=== PATIENT | female | born 1950 | race Caucasian/White ===

== ENCOUNTER 2017-07-23 13:43 | Emergency (ER) | payer BC ==
[2017-07-23 16:10] VITALS: BP 137/77
--- NOTE | 2017-07-23 16:24 | UC ---
FLU HPI - HPI Summary HPI Summary: 66 y/o female presents to the urgent care c/o body aches, fatigue, with mild nasal congestion since yesterday. Nasal discharge is clear. She has not taking anything to alleviate symptoms. She likes to take homeopathic approach. Pt denies fever, sOB, cough, chest pain, abdominal pain N/V/D. - History of Current Complaint Chief Complaint: UCGeneralIllness Stated Complaint: FLU SYMPTOMS Time Seen by Provider: 07/23/17 16:20 Hx Obtained From: Patient ?: No Onset/Duration: Gradual Onset, Lasting Days - 1 day, Still Present Severity Currently: Mild Severity Initially: Mild Pain Intensity: 2 Pain Scale Used: 0-10 Numeric Associated Signs & Symptoms: Positive: Myalgia, Nasal Congestion - mild, Headache. Negative: Fever, Cough, Sore Throat - Risk Factors Influenza Risk Factors: Age 65 y/o or Older - Allergy/Home Medications Allergies/Adverse Reactions: Allergies Allergy/AdvReac Type Severity Reaction Status Date / Time No Known Allergies Allergy Verified 07/23/17 16:10 Home Medications: Home Medications NK [No Home Medications Reported] 07/23/17 [History Confirmed 07/23/17] PMH/Surg Hx/FS Hx/Imm Hx Previously Healthy: Yes - Pt denies PMHX - Surgical History Surgical History: None - Family History Known Family History: Positive: Cardiac Disease, Diabetes - Social History Occupation: Retired Lives: With Family Alcohol Use: Occasionally Substance Use Type: None Smoking Status (MU): Never Smoked Tobacco Review of Systems Constitutional: Chills, Fatigue, Other - body aches Skin: Negative Eyes: Negative ENT: Nasal Discharge Respiratory: Negative Cardiovascular: Negative Gastrointestinal: Negative Genitourinary: Negative Motor: Negative Neurovascular: Negative Musculoskeletal: Negative Neurological: Headache Psychological: Negative Is Patient Immunocompromised?: No All Other Systems Reviewed And Are Negative: Yes Physical Exam Triage Information Reviewed: Yes Vital Signs: Initial Vital Signs Temp 98.7 F 07/23/17 16:04 Pulse 69 07/23/17 16:04 Resp 16 07/23/17 16:04 BP 137/77 07/23/17 16:04 Pulse Ox 100 07/23/17 16:04 - Additional Comments VITAL SIGNS: Reviewed. GENERAL: Patient is a well developed and nourished female who is sitting comfortable in the examining table. Patient is not in any acute respiratory distress. HEAD AND FACE: No signs of trauma. No ecchymosis, hematomas or skull depressions. No sinus tenderness. edematous erythematous nasal mucosa with yellowish discharge, EYES: PERRLA, EOMI x 2, No injected conjunctiva, clear watery eyes, no nystagmus. No photophobia. EARS: Hearing grossly intact. Ear canals and tympanic membranes are within normal limits. MOUTH: Positive pharynx with erythema, no exudates,no palatal petechiae. no B/L tonsillar enlargement Uvula in midline. NECK: Supple, trachea is midline, Positive anterior cervical lymphadenopathy, no JVD, no carotid bruit, no c-spine tenderness, neck with full ROM. No meningeal signs, no Kernig's or brudzinskis signs. CHEST: Symmetric, no tenderness at palpation LUNGS: Clear to auscultation bilaterally. No wheezing or crackles. CVS: Regular rate and rhythm, S1 and S2 present, no murmurs or gallops appreciated. ABDOMEN: Soft, non-tender. No signs of distention. No rebound no guarding, and no masses palpated. Bowel sounds are normal. EXTREMITIES: FROM in all major joints, no edema, no cyanosis or clubbing. NEURO: Alert and oriented x 3. No acute neurological deficits. Speech is normal and follows commands. SKIN: Dry and warm Flu Course/Dx - Course Course Of Treatment: 66 y/o female presents to the urgent care c/o body aches, fatigue, with mild nasal congestion since yesterday. Nasal discharge is clear. She has not taking anything to alleviate symptoms. She likes to take homeopathic approach. Pt denies fever, sOB, cough, chest pain, abdominal pain N/ V/D. Hx obtained. Pt with URI on examination. Influenza A&B ordered: result: negative. Advised to take tylenol PO for DUARTE and encourage hand washing avoid spreading. Pt advised to rest, increase fluid intake, eat well and avoid strenuous exercise. If symptoms do not improve or worsen advised to return to the urgent care or f/u with her PCP for further evaluation and treatment. Pt understood and agreed with plan of care. - Differential Dx/Diagnosis Differential Diagnosis/HQI/PQRI: Bronchitis, Influenza, Upper Respiratory Infection, Other - pharyngitis Provider Diagnoses: 1- Viral syndrome Discharge - Discharge Plan Condition: Stable Disposition: HOME Patient Education Materials: Viral Syndrome (ED) Referrals: Seema Stevens MD [Primary Care Provider] - 2 Days Additional Instructions: 1-Please take Tylenol PO q6-8hrs prn as instructed after meals to alleviate Headache. Increase fluid intake, eat well, rest and avoid strenuous exercise. Use saline drops to clear sinuses 3-If symptoms do not improve or worsen please return to the urgent care or f/u with your PCP in 2 days for further evaluation and treatment.
== END 2017-07-23 16:56 | disposition home or self-care (01) ==
LOC: UCCORT 13:43
DX: B34.9 Viral infection, unspecified (principal)
CPT/HCPCS: 87502; 99211; G0463

== ENCOUNTER 2017-08-15 12:55 | Emergency (ER) | payer BC ==
--- OUTSIDE RECORDS SUMMARY | 2017-08-15 16:25 | XMS REPORT ---
:1950 External Reference #:[id number] Author Organization [facility] Address [address] [place] [address] Phone [phone] Care Team Providers Name Role Phone Seema Stevens MD Primary Care Physician Unavailable Payers Type Date Identification Numbers Payment Provider Subscriber Health Maintenance Policy Number: [id number] [place] Plan Claims Davina Singer [facility] (HMO) PayID: [id number] [address] [place] [address] Problems Description No Information Family History Date Family Member(s) Problem(s) Comments General Diabetes Type 2 Father due to Heart Disease () Father due to Hypertension () Father due to Ulcer () Mother due to Stroke () Mother due to Breast Cancer () Social History Type Date Description Comments Marital Status Legal Status: Cigarette Use Never Smoked Cigarettes ETOH Use Social Smoking Patient has never smoked Recreational Drug Use Never Used Drugs Seat Belt/Car Seat Always uses seat belt Currently Active Patient is currently sexually active Allergies, Adverse Reactions, Alerts Date Description Reaction Status Severity Comments 01/03/2017 NKDA active Medications Medication Date Status Form Strength Qnty SIG Indications Ordering Provider Takes Only 01/03/2017 Active Jennifer Patel M.D. Immunizations CPT Code Status Date Vaccine Lot # [id number] Given 07/19/2015 Pneumococcal Conjugate Vaccine 13 Valent For Intramuscular Use 42215 Given 07/09/2015 Zostavax Vital Signs Date Vital Result Comment 07/31/2017 BP Systolic 124 mmHg BP Diastolic 76 mmHg Height 65 inches 5'5" Weight 158.00 lb BMI (Body Mass Index) 26.3 kg/m2 06/04/2017 BP Systolic 108 mmHg BP Diastolic 70 mmHg Height 65 inches 5'5" Weight 161.00 lb BMI (Body Mass Index) 26.8 kg/m2 01/29/2017 BP Systolic 108 mmHg BP Diastolic 66 mmHg Height 65 inches 5'5" Weight 158.00 lb BMI (Body Mass Index) 26.3 kg/m2 01/03/2017 BP Systolic 138 mmHg BP Diastolic 70 mmHg BP Systolic Recheck 120 mmHg BP Diastolic Recheck 70 mmHg Height 65 inches 5'5" Weight 155.00 lb BMI (Body Mass Index) 25.8 kg/m2 Results Test Date Test Result H/L Range Note CBC Auto Diff 07/24/2017 White Blood Count 5.6 10^3/uL 3.5-10.8 Red Blood Count 5.12 10^6/uL 4.0-5.4 Hemoglobin 13.4 g/dL 12.0-16.0 Hematocrit 41 % 35-47 Mean Corpuscular Volume 80 fL 80-97 Mean Corpuscular Hemoglobin 26 pg Low 27-31 Mean Corpuscular HGB Conc 33 g/dL 31-36 Red Cell Distribution Width 14 % 10.5-15 Platelet Count 155 10^3/uL 150-450 Mean Platelet Volume 10 um3 7.4-10.4 Abs Neutrophils 3.4 10^3/uL 1.5-7.7 Abs Lymphocytes 1.7 10^3/uL 1.0-4.8 Abs Monocytes 0.4 10^3/uL 0-0.8 Abs Eosinophils 0.1 10^3/uL 0-0.6 Abs Basophils 0 10^3/uL 0-0.2 Abs Nucleated RBC 0 10^3/uL Granulocyte % 60.9 % 38-83 Lymphocyte % 29.4 % 25-47 Monocyte % 6.7 % 1-9 Eosinophil % 2.6 % 0-6 Basophil % 0.4 % 0-2 Nucleated Red Blood Cells % 0.1 Rapid Influenza A & B 07/23/2017 Influenza A Molecular NEGATIVE Negative 1 Molecular Influenza B Molecular NEGATIVE Negative Lipid Panel 01/21/2017 Triglycerides 59 mg/dL 2 Cholesterol 207 mg/dL 3 HDL Cholesterol 69.2 mg/dL 4 LDL Cholesterol 126 mg/dL 5 CBC W/ Diff & PLT 01/21/2017 White Blood Count 5.0 10^3/uL 3.5-10.8 Red Blood Count 4.99 10^6/uL 4.0-5.4 Hemoglobin 13.1 g/dL 12.0-16.0 Hematocrit 41 % 35-47 Mean Corpuscular Volume 82 fL 80-97 Mean Corpuscular Hemoglobin 26 pg Low 27-31 Mean Corpuscular HGB Conc 32 g/dL 31-36 Red Cell Distribution Width 14 % 10.5-15 Platelet Count 131 10^3/uL Low 150-450 Mean Platelet Volume 10 um3 7.4-10.4 Abs Neutrophils 2.7 10^3/uL 1.5-7.7 Abs Lymphocytes 1.8 10^3/uL 1.0-4.8 Abs Monocytes 0.3 10^3/uL 0-0.8 Abs Eosinophils 0.1 10^3/uL 0-0.6 Abs Basophils 0 10^3/uL 0-0.2 Abs Nucleated RBC 0 10^3/uL Granulocyte % 54.4 % 38-83 Lymphocyte % 36.4 % 25-47 Monocyte % 6.2 % 1-9 Eosinophil % 2.5 % 0-6 Basophil % 0.5 % 0-2 Nucleated Red Blood Cells % 0.1 Basic Metabolic Panel 01/21/2017 Sodium 137 mmol/L 133-145 Potassium 4.1 mmol/L 3.5-5.0 Chloride 105 mmol/L 101-111 Co2 Carbon Dioxide 28 mmol/L 22-32 Anion Gap 4 mmol/L 2-11 Glucose 89 mg/dL 70-100 Blood Urea Nitrogen 8 mg/dL 6-24 Creatinine 0.84 mg/dL 0.51-0.95 BUN/Creatinine Ratio 9.5 8-20 Calcium 8.9 mg/dL 8.6-10.3 Egfr Non- 67.6 >60 Egfr 87.0 >60 6 Laboratory test finding 01/21/2017 TSH (Thyroid Stim Horm) 4.10 mcIU/mL 0.34-5.60 Free T4 (Free Thyroxine) 0.84 ng/dL 0.61-1.12 1 Photographer: [id number] 2 Desirable <150 Borderline high 150-199 High 200-499 Very High >500 3 Desirable <200 Borderline high 200-239 High >239 4 Low <40 Desirable: 40-60 High: >60 5 Desirable: <100 mg/dL Near Optimal: 100-129 mg/dL Borderline High: 130-159 mg/dL High: 160-189 mg/dL Very High: >189 mg/dL 6 Because ethnic data is not always readily available, this report includes an eGFR for both -Americans and non- Americans. The National Kidney Disease Education Program (NKDEP) does not endorse the use of the MDRD equation for patients that are not between the ages of 18 and 70, are , have extremes of body size, muscle mass, or nutritional status, or are non- or non-. According to the National Kidney Foundation, irrespective of diagnosis, the stage of the disease is based on the level of kidney function: Stage Description GFR(mL/min/1.73 m(2)) 1 Kidney damage with normal or decreased GFR 90 2 Kidney damage with mild decrease in GFR 60-89 3 Moderate decrease in GFR 30-59 4 Severe decrease in GFR 15-29 5 Kidney failure <15 (or dialysis) Procedures Date CPT Code Description Status 01/21/2017 55285 EKG-Tracing & Report Completed 12/20/2011 Bone Mineral Density Test Completed 06/07/2003 Colonoscopy Completed Encounters Type Date Location Provider CPT E/M Dx Office Visit 06/04/2017 2:45p Main Office Seema Stevens M.D. 57146 J01.90 K58.1 Office Visit 01/29/2017 1:45p Main Office Seema Stevens M.D. 22894 D50.9 Office Visit 01/03/2017 11:45a Main Office Seema Stevens M.D. 60221 E78.5 Plan of Care Future Appointment(s):08/01/2017 8:00 am - Nurse at Main [id number]/13/2017 10: 00 am - Seema Stevens M.D. at Main Office
--- OUTSIDE RECORDS SUMMARY | 2017-08-15 16:25 | XMS REPORT ---
:1950 External Reference #:[id number] Author Organization [facility] Address [address] [place] [address] Phone [phone] Care Team Providers Name Role Phone Seema Stevens MD Primary Care Physician Unavailable Payers Type Date Identification Numbers Payment Provider Subscriber Health Maintenance Policy Number: [id number] [place] Plan Claims Davina Singer [facility] (HMO) PayID: [id number] [address] [place] [address] Problems Description No Information Family History Date [...] CPT Code Status Date Vaccine Lot # [id number] Given 07/19/2015 Pneumococcal Conjugate Vaccine 13 Valent For Intramuscular Use 70506 Given 07/09/2015 Zostavax Vital Signs Date Vital Result Comment 08/06/2017 BP Systolic 128 mmHg BP Diastolic 80 mmHg Height 65 inches 5'5" Weight 158.00 lb BMI (Body Mass Index) 26.3 kg/m2 07/31/2017 BP Systolic 124 mmHg BP Diastolic [...] Test Date Test Result H/L Range Note Laboratory test finding 08/02/2017 Hep B Core AB Total Negative Negative 1 Hepatitis Be Antigen Positive Negative Hepatitis Be Antibody Negative Negative Thyroid Peroxidase Antibodies 27 IU/mL 0-34 Celiac Disease Comp AB Profile 08/02/2017 Immunoglobulin A 149 mg/dL 87- 352 Antigliadin Abs, IgG 4 units 0-19 2 Antigliadin Abs, IgA 3 units 0-19 3 Endomysial IgA Antibody Negative Negative t-Transglutaminase IgA <2 U/mL 0-3 4 t-Transglutaminase IgG <2 U/mL 0-5 5 Thyroglobulin QT And 08/02/2017 Thyroglobulin Antibody < 1.0 IU/mL 0.0 -0.9 6 Thyro AB Thyroglobulin By Denise 5.8 ng/mL 1.5-38.5 7 Lupus Anticoagulant Reflex 08/02/2017 PTT-LA 38.1 sec 0.0-51.9 DRVVT 38.8 sec 0.0-47.0 Note: Comment: . 8 Laboratory test finding 08/02/2017 Hepatitis B Surface Antigen Negative Negative Hepatitis B Surface Antibody Non Reactive . 9 Hepatitis B Core Antibody-IgM Negative Negative 10 Hepatitis C Antibody < 0.1 s/corat 0.0-0.9 11 Glycohemoglobin A1c 08/02/2017 Glycohemoglobin (A1c) 5.4 % 4.2-6.3 12 eAG 108 mg/dL Basic Metabolic Panel 08/02/2017 Glucose 87 mg/dL 74-106 BUN 10 mg/dL 7-18 Creatinine 0.9 mg/dL 0.6-1.3 Glom Filtration Rate, Estimate >60 mL/min >60 If >60 mL/min >60 13 BUN/Creat 11.1 ratio Sodium 140 mmol/L 136-145 Potassium 3.8 mmol/L 3.5-5.1 Chloride 104 mmol/L 98-107 Carbon Dioxide 30 mmol/L 21-32 Anion Gap 6 mEq/L Low 8-16 Calcium 9.3 mg/dL 8.5-10.1 Laboratory test finding 08/02/2017 Vitamin B12 675 pg/mL 193-986 CBC Auto Diff 07/24/2017 White Blood Count [...] B 07/23/2017 Influenza A Molecular NEGATIVE Negative 14 Molecular Influenza B Molecular NEGATIVE Negative Lipid Panel 01/21/2017 Triglycerides 59 mg/dL 15 Cholesterol 207 mg/dL 16 HDL Cholesterol 69.2 mg/dL 17 LDL Cholesterol 126 mg/dL 18 CBC W/ Diff & PLT 01/21/2017 White [...] Egfr Non- 67.6 >60 Egfr 87.0 >60 19 Laboratory test finding 01/21/2017 TSH (Thyroid Stim Horm) 4.10 mcIU/mL 0.34-5.60 Free T4 (Free Thyroxine) 0.84 ng/dL 0.61-1.12 1 Performed at: - [facility] [id number] [place]: Antonina Hicks MD, Phone: [phone] Performed at: - [facility] [id number] [place]: Tutu Larose MD, Phone: [phone] 2 Negative 0 - 19 Weak Positive 20 - 30 Moderate to Strong Positive >30 3 Negative 0 - 19 Weak Positive 20 - 30 Moderate to Strong Positive >30 4 Negative 0 - 3 Weak Positive 4 - 10 Positive >10 Tissue Transglutaminase (tTG) has been identified as the endomysial antigen. Studies have demonstr- ated that endomysial IgA antibodies have over 99% specificity for gluten sensitive enteropathy. 5 Negative 0 - 5 Weak Positive 6 - 9 Positive >9 6 Thyroglobulin Antibody measured by [facility] Method[employer] 7 According to the National Academy of Clinical Biochemistry, the reference interval for Thyroglobulin (TG) should be related to euthyroid patients and not for patients who underwent thyroidectomy. TG reference intervals for these patients depend on the residual mass of the thyroid tissue left after surgery. Establishing a post-operative baseline is recommended. The assay limit of quantitation is 0.1 ng/mL Thyroglobulin measured by [facility] [place] Immunometric Assay 8 No lupus anticoagulant was detected. 9 Non Reactive: Inconsistent with immunity, less than 10 mIU/mL Reactive: Consistent with immunity, greater than 9.9 mIU/mL 10 Performed at: [facility] [id number] [place]: Antonina Hicks MD, Phone: [phone] INFCE Result Units: s/co ratio Negative: < 0.8 Indeterminate: 0.8 - 0.9 Positive: > 0.9 The CDC recommends that a positive HCV antibody result be followed up with a HCV Nucleic Acid Amplification test (466790). 12 Elevated levels of HbA1c suggest the need for more aggressive treatment of glycemia. The [place] [employer] recommends that a primary goal of therapy should be a HbA1c of <7% and that physicians should re-evaluate the treatment regimen in patients with HbA1c values consistently >8%. 13 Note: Persistent reduction for 3 months or more in an eGFR <60 mL/min/1.73 m2 defines CKD. Patients with eGFR values >/=60 mL/min/1.73 m2 may also have CKD if evidence of persistent proteinuria is present. The original MDRD equation for estimated GFR is not valid for patients less than 18 years of age. Additional information may be found at www.kdoqi.org. 14 Rebrander: [id number] 15 Desirable <150 Borderline high 150-199 High 200-499 Very High >500 16 Desirable <200 Borderline high 200-239 High >239 17 Low <40 Desirable: 40-60 High: >60 18 Desirable: <100 mg/dL Near Optimal: 100-129 mg/dL Borderline High: 130-159 mg/dL High: 160-189 mg/dL Very High: >189 mg/dL 19 Because ethnic data is not always readily [...] Procedures Date CPT Code Description Status 01/21/2017 92190 EKG-Tracing & Report Completed 12/20/2011 Bone Mineral Density Test Completed 06/07/2003 Colonoscopy Completed Encounters Type Date Location Provider CPT E/M Dx Office Visit 07/31/2017 10:30a Main Office Seema Stevens M.D. 69023 K58.1 J01.11 G93.3 Office Visit 06/04/2017 2:45p Main Office Seema Stevens M.D. 76740 J01.90 K58.1 Office Visit 01/29/2017 1:45p Main Office Seema Stevens M.D. 07112 D50.9 Office Visit 01/03/2017 11:45a Main Office Seema Stevens M.D. 15412 E78.5 Plan of Care Future Appointment(s):08/13/2017 10:00 am - Seema Stevens M.D. at Main Office
--- NOTE | 2017-08-15 17:13 | UC ---
FLU HPI - HPI Summary HPI Summary: 66 y/o female presents to the urgent care c/o fever, fatigue, DUARTE, body aches, productive cough since last night. Pt reports this afternoon she had an episode of vomiting. She has not taking anything to alleviate symptoms. Pain is 8/10 but it feels more like sore. Pt states decrease appetite only drinking water. Pt denies SOB, dizziness, chest pain, abdominal pain, N/V/D. - History of Current Complaint Stated Complaint: FLU SYMPTOMS Time Seen by Provider: 08/15/17 17:11 Hx Obtained From: Patient Onset/Duration: Gradual Onset, Lasting Days - 1 day, Still Present, Worse Since - this morning Severity Currently: Mild Severity Initially: Moderate Pain Intensity: 8 Pain Scale Used: 0-10 Numeric Associated Signs & Symptoms: Positive: Fever, Myalgia, Cough, Nasal Congestion, Headache, Vomiting - 1 episode - Risk Factors Influenza Risk Factors: Negative - Allergy/Home Medications Allergies/Adverse Reactions: Allergies Allergy/AdvReac Type Severity Reaction Status Date / Time No Known Allergies Allergy Verified 08/15/17 17:14 PMH/Surg Hx/FS Hx/Imm Hx Previously Healthy: Yes - Pt denies PMHX - Surgical History Surgical History: None - Family History Known Family History: Positive: Cardiac Disease, Hypertension, Diabetes - Social History Occupation: Employed Full-time Lives: With Family Alcohol Use: Occasionally Substance Use Type: None Smoking Status (MU): Never Smoked Tobacco Review of Systems Constitutional: Fever, Chills, Fatigue, Other - body aches w/ decrease appetite Skin: Negative Eyes: Negative ENT: Nasal Discharge, Sinus Congestion Respiratory: Cough Cardiovascular: Negative Gastrointestinal: Vomiting Genitourinary: Negative Motor: Negative Neurovascular: Negative Musculoskeletal: Negative Neurological: Headache Psychological: Negative Is Patient Immunocompromised?: No All Other Systems Reviewed And Are Negative: Yes Physical Exam Triage Information Reviewed: Yes - Additional Comments VITAL SIGNS: Reviewed. GENERAL: Patient is a well developed and nourished female who is sitting comfortable in the examining table. Patient is not in any acute respiratory distress. HEAD AND FACE: No signs of trauma. No ecchymosis, hematomas or skull depressions. No sinus tenderness. edematous erythematous nasal mucosa with yellowish discharge, EYES: PERRLA, EOMI x 2, No injected conjunctiva, clear watery eyes, no nystagmus. No photophobia. EARS: Hearing grossly intact. Ear canals and tympanic membranes are within normal limits. MOUTH: Positive pharynx with erythema, no exudates,no palatal petechiae. no B/L tonsillar enlargement Uvula in midline. NECK: Supple, trachea is midline, Positive anterior cervical lymphadenopathy, no JVD, no carotid bruit, no c-spine tenderness, neck with full ROM. No meningeal signs, no Kernig's or brudzinskis signs. CHEST: Symmetric, no tenderness at palpation LUNGS: Clear to auscultation bilaterally. No wheezing or crackles. CVS: Regular rate and rhythm, S1 and S2 present, no murmurs or gallops appreciated. ABDOMEN: Soft, non-tender. No signs of distention. No rebound no guarding, and no masses palpated. Bowel sounds are normal. EXTREMITIES: FROM in all major joints, no edema, no cyanosis or clubbing. NEURO: Alert and oriented x 3. No acute neurological deficits. Speech is normal and follows commands. SKIN: Dry and warm Flu Course/Dx - Course Course Of Treatment: 66 y/o female presents to the urgent care c/o fever, fatigue, DUARTE, body aches, productive cough since last night. Pt reports this afternoon she had an episode of vomiting. She has not taking anything to alleviate symptoms. Pain is 8/10 but it feels more like sore. Pt states decrease appetite only drinking water. Pt denies SOB, dizziness, chest pain, abdominal pain, N/V/D. Hx obtained. Pt febrile with Viral syndrome on examination. Influenza A&B ordered: result: negative.Pt given tylenol PO at the clinic for fever. Pt requested Tamiflu despite test result. Pt Rx Tamiflu and ibuprofen PO to alleviates symptoms. Advised on hand washing and wear a mask to avoid spreading. Pt advised to rest, increase fluid intake, eat well and avoid strenuous exercise. If symptoms worsen advised to go immediately to the ER for further evaluation and treatment. Pt's BP is elevated today advised to decrease salt in diet, monitor BP and f/u with PCP for further management. Pt understood and agreed with plan of care. Pt left the clinic hemodynamically stable, A&Ox3 - Differential Dx/Diagnosis Differential Diagnosis/HQI/PQRI: Bronchitis, Influenza, Pneumonia, Upper Respiratory Infection Provider Diagnoses: 1-Viral syndrome. 2-Fever. 3-Uncontrolled HTN Discharge - Discharge Plan Condition: Stable Disposition: HOME Prescriptions: Ibuprofen TAB* [Motrin TAB* 800 MG] 800 mg PO Q6H PRN #20 tab PRN Reason: Fever Oseltamivir CAP* [Tamiflu CAP*] 75 mg PO BID #10 cap Patient Education Materials: Viral Syndrome (ED), Low-Sodium Diet (ED) Forms: *Work Release Referrals: Seema Stevens MD [Primary Care Provider] - 3 Days Additional Instructions: 1- Please take the full course of the antiviral to avoid resistance. Encourage hand washing and wear a mask to avoid spreading. 2-Please continue taking Ibuprofen PO q6-8hrs prn as instructed after meals to alleviate fever, and sore throat. Increase fluid intake, eat well, rest and avoid strenuous exercise 3-If symptoms do not improve or worsen please return to the urgent care or f/u with your PCP in 2 days for further evaluation and treatment. If you develop SOB , high fevers and respiratory distress please go immediately to the ER for further management 4-Your BP is elevated today. please decrease salt in your diet, monitor BP and if it continues to be elevated please f/u with your PCP for further management
[2017-08-15 17:22] VITALS: BP 143/81
[2017-08-15] MEDS ORDERED: Acetaminophen TAB* 325 MG PO ONE (17:30)
== END 2017-08-15 18:08 | disposition home or self-care (01) ==
LOC: UCCORT 12:55
DX: B34.9 Viral infection, unspecified (principal); R50.9 Fever, unspecified; I10 Essential (primary) hypertension
CPT/HCPCS: 87502; 99212; G0463